=== PATIENT | male | born 1980 | race Caucasian/White ===

== ENCOUNTER 2017-06-08 20:23 | Emergency (ER) | payer BC ==
[2017-06-08 20:35] VITALS: BP 153/63; PULSE 87; RESP 18; TEMP 99.5; O2SAT 99
[2017-06-08 20:43] LABS: COLOR YELLOW; LEUKOCYTE ESTERASE,URINE NEGATIVE (NEGATIVE); NITRITE,URINE NEGATIVE (NEGATIVE); PH,URINE 7.5 (5.0-7.5)
[2017-06-08] MEDS ORDERED: IBUPROFEN 600 MG TAB PO ONE (20:43)
--- NOTE | 2017-06-08 20:48 | EDPHY ---
H & P Time Seen by Provider: 06/08/17 20:32 HPI/ROS: HPI Body aches, generalized fatigue. 37-year-old male by private vehicle. This patient reports that he was hiking vigorously in mountain biking yesterday. He reports that since yesterday evening he has developed body aches, a feeling of generalized fatigue, fogginess in his head, intermittent abdominal cramps with mild nausea and lower back aches. He denies vomiting. No diarrhea. He has not had a cough. He denies urinary complaints. Denies fever. He denies neck pain. ROS: Constitutional: No fever, no chills. As above. Eyes: No discharge. No changes in vision. ENT: No sore throat. No nasal congestion or rhinorrhea. Respiratory: No cough. No shortness of breath. Cardiac: No chest pain, no palpitations. Gastrointestinal: As above, no vomiting, no diarrhea. Genitourinary: No hematuria. No dysuria or increased frequency with urination. Musculoskeletal: As above. No neck pain. No myalgias or arthralgias. Skin: No rashes. Neurological: No headache. No focal weakness or altered sensation. Past medical history: Migraine headaches, anxiety, serotonin syndrome, right 5th finger surgery. Social history: Nonsmoker. Denies alcohol. Here by himself. Physical Exam: General Appearance: Alert, no distress. This patient is responding to questions appropriately and in full sentences. This patient appears well- hydrated and well-nourished. Eyes: Pupils equal and round no pallor or injection. No lid edema, erythema or injection. ENT, Mouth: Mucous membranes are moist. The pharyngeal tissues are unremarkable. No edema or swelling. No asymmetry suggestive of abscess. No erythema or exudates. Back exam: No CVA tenderness bilaterally. No midline cervical, thoracic, lumbar sacral tenderness on palpation. No sacroiliac joint tenderness. No soft tissue changes on gross inspection. Respiratory: There are no retractions, lungs are clear to auscultation with good air movement bilaterally. Cardiovascular: Regular rate and rhythm. No murmur. Gastrointestinal: Abdomen is soft and nontender, no masses, bowel sounds normal. No focal tenderness at McBurney's point. No Gutierrez sign. Neurological: Motor sensory function is grossly intact. Cranial nerves are normal. Gait is normal. Skin: Warm and dry, no rashes. Musculoskeletal: Neck is supple and nontender. No pain on flexion of the neck. No cervical, submental or submandibular lymphadenopathy. Extremities are symmetrical. All joints range without pain or impingement. Psychiatric: No agitation. No depression. Database: EKG: Imaging: Procedures: Emergency department course: Urine sample obtained. Vital signs reviewed. Patient moderately hypertensive. Otherwise vital signs are within normal limits. Patient's presentation is consistent with a viral syndrome. He has a benign abdomen. Urinalysis results reviewed with the patient. Patient feels comfortable going home. Follow-up and return to emergency department precautions were discussed. He was instructed to return to the emergency department for darkening of his urine, worsening symptoms or other serious concerns. Differential Diagnosis: The differential diagnosis on this patient includes but is not limited to viral syndrome. Rhabdomyolysis, urinary tract infection/pyelonephritis, appendicitis , cholecystitis, bowel obstruction, pneumonia, other serious bacterial infection unlikely. This represents a partial list of diagnoses considered. These considerations are based on history, physical exam, past history, reassessment and diagnostic testing. Smoking Status: Former smoker Constitutional: Initial Vital Signs Temperature (C) 37.5 C 06/08/17 20:25 Heart Rate 87 06/08/17 20:25 Respiratory Rate 18 06/08/17 20:25 Blood Pressure 153/63 H 06/08/17 20:25 O2 Sat (%) 99 06/08/17 20:25 O2 Delivery Mode Room Air Allergies/Adverse Reactions: No Known Allergies Allergy (Verified 06/08/17 20:35) Home Medications: Medication Instructions Recorded Advil 05/01/16 Ondansetron Odt [Zofran Odt 4 mg 4 mg PO Q4PRN PRN #10 tab 06/08/17 (*)] Medical Decision Making - Data Points Medications Given: Discontinued Medications Ibuprofen (Motrin) 600 mg PO EDNOW ONE Stop: 06/08/17 20:44 Last Admin: 06/08/17 21:03 Dose: 600 mg Departure - Departure Disposition: Home, Routine, Self-Care Clinical Impression: Viral syndrome Condition: Good Instructions: Viral Syndrome (ED) Additional Instructions: Read and follow provided instructions. Follow-up with your primary care physician in 1-2 days for re-evaluation. Drink lots of fluids, keep well hydrated. A good fluid to drink is Gatorade mixed with water in a 1-1 dilution. Ibuprofen dosin mg every 6 hours with meals for the next 3 days only. Take medication as prescribed for nausea. Return to the emergency department for worsening symptoms, dark urine, high fever, worsening headache, vomiting, worsening abdominal pain or other serious concerns. Referrals: NONE *PRIMARY CARE P,. [Primary Care Provider] - As per Instructions Prescriptions: Ondansetron Odt [Zofran Odt 4 mg (*)] 4 mg PO Q4PRN PRN #10 tab PRN Reason: For Nausea & Vomiting
[2017-06-08 20:55] LABS: RBC,URINE 0-1 /hpf (0-3); WBC,URINE OCCASIONAL /hpf (0-3)
== END 2017-06-08 21:19 | disposition home or self-care (01) ==
LOC: CED 20:23
DX: B34.9 Viral infection, unspecified (principal); Z87.891 Personal history of nicotine dependence
CPT/HCPCS: 81003-PO; 81015-PO